=== PATIENT | female | born 1965 | race Caucasian/White ===

== ENCOUNTER 2016-10-18 17:10 | Emergency (ER) | payer MEDICARE ==
[2016-10-18 22:31] LABS: BASOPHIL 0.4 % (0-2); EOSINOPHIL 5.2 % (0-5); HCT 40.9 % (37.0-47.0); HGB 13.6 g/dl (12.5-16.0); LYMPHOCYTE 12.2 % (15-48); MCH 28.3 pg (25.0-31.0); MCHC 33.3 g/dL (32.0-36.0); MONOCYTE 6.5 % (0-12); MPV 9.5 fL (6.0-9.5); NEUTROPHIL 75.7 % (41-80); PLT 203 K/uL (150-400); RBC 4.81 M/uL (4.20-5.40); RDW 15.2 % (11.5-14.0); WBC 7.8 K/uL (4.0-10.5)
[2016-10-18 22:38] LABS: INR 1.09 (0.9-1.2); PROTHROMBIN TIME 13.7 SECONDS (11.7-14.0); PTT 26.8 SECONDS (23.2-31.4)
[2016-10-18 22:49] LABS: ALBUMIN 4.2 g/dL (3.5-5.0); BILIRUBIN - TOTAL 0.8 mg/dL (0.1-1.0); CREATININE 1.2 mg/dL (0.5-1.0); GLOBULIN (CALCULATION) 2.1 g/dL (2.2-4.2); POTASSIUM 3.6 mmol/L (3.5-5.1); TOTAL PROTEIN 6.3 g/dL (6.4-8.3)
== END 2016-10-19 01:09 | disposition home or self-care (01) ==
LOC: FER 17:10
PROVIDERS: Emergency Medicine Emergency Medical Services
DX: L03.116 Cellulitis of left lower limb (principal); R26.2 Difficulty in walking, not elsewhere classified; I10 Essential (primary) hypertension; M10.9 Gout, unspecified; Z86.14 Personal history of Methicillin resistant Staphylococcus aureus infection; Z88.5 Allergy status to narcotic agent; Z79.899 Other long term (current) drug therapy
CPT/HCPCS: 36415; 80053; 84145; 85025; 85610; 85651; 85730; 86140; 87040; J1100; J2270; J2405